=== PATIENT | male | born 1965 | race American Indian/Alaskan Native ===

== ENCOUNTER 2019-03-06 13:05 | Emergency (ER) | payer OTHER ==
--- NOTE | 2019-03-06 13:21 | Emergency Department Report ---
Blank Doc - Documentation Documentation: This is a 53-year-old male that presents with SOB, generalized weakness and bi lateral leg pain. This initial assessment/diagnostic orders/clinical plan/treatment(s) is/are subject to change based on patient's health status, clinical progression and re- assessment by fellow clinical providers in the ED. Further treatment and workup at subsequent clinical providers discretion. Patient/guardians urged not to elope from the ED as their condition may be serious if not clinically assessed and managed. Initial orders include: 1- Patient sent to MAIN ED for further evaluation and treatment 2- labs 3- EKG 4- cxr
[2019-03-06 14:08] LABS: Hematocrit 40.4 % (35.5-45.6); Mean Corpuscular HGB Conc 35 % (32-34); Mean Corpuscular Volume 88 fl (84-94); Platelet Count 261 K/mm3 (140-440); Red Blood Count 4.62 M/mm3 (3.65-5.03); Red Cell Distribution Width 12.8 % (13.2-15.2)
[2019-03-06 14:17] LABS: INR 0.87 (0.87-1.13)
[2019-03-06 14:18] LABS: Partial Thromboplastin Time 28.5 Sec. (24.2-36.6)
--- NOTE | 2019-03-06 14:19 | XRay Report ---
ROUTINE CHEST, TWO VIEWS: HISTORY: chest pain. The trachea, heart, mediastinal contour, lung blanco and bony thorax are unremarkable. IMPRESSION: Unremarkable chest x-ray.
[2019-03-06 14:32] LABS: Alanine Aminotransferase 14 units/L (7-56); Albumin 4.6 g/dL (3.9-5); BUN/Creatinine Ratio 6; Blood Urea Nitrogen 7 mg/dL (9-20); Calcium 9.9 mg/dL (8.4-10.2); Hemolysis Index 9
[2019-03-06] MEDS ORDERED: CATAPRES PO ONE (14:54)
[2019-03-06] MEDS ORDERED: CATAPRES ONE (14:58)
[2019-03-06 15:18] LABS: Eosinophils % (Manual) 0 % (0.0-4.3); Platelet Estimate Consistent w Auto; RBC Morphology Normal; Total Cells Counted 100
[2019-03-06] MEDS ORDERED: NACL 0.9% 1000 ML 1,000 ML IV ONE (15:55)
--- NOTE | 2019-03-06 16:01 | Emergency Department Report ---
HPI - General Chief Complaint: Weakness Time Seen by Provider: 03/06/19 13:20 - HPI HPI: Room 6 The patient is a 53-year-old male presented with a chief complaint of cramping and hypertension. The patient states 1 week ago went to see a dentist but they would not treat him secondary to hypertension. The patient states over the past 2-3 days he's had cramping in his hands and legs intermittently in addition to nausea and vomiting. Patient missed a slight shortness breath this morning but denies headache or chest pain. In the ED the patient currently denies complaints Location: [See above] Duration: One week Quality: Nausea Severity: [See above] Modifying factors: [see above] Context: [see above] Mode of transportation: [not driving] ED Past Medical Hx - Past Medical History Previous Medical History?: No - Surgical History Past Surgical History?: No Additional Surgical History: Right humerus fracture repair - Family History Family history: no significant - Social History Smoking Status: Current Every Day Smoker (1/3 pack per day) Substance Use Type: None (denies illicit drug use), Alcohol (occasional) ED Review of Systems ROS: Stated complaint: CHEST PAIN Other details as noted in HPI Constitutional: no symptoms reported Eyes: denies: eye pain ENT: denies: throat pain Respiratory: shortness of breath Cardiovascular: denies: chest pain Endocrine: no symptoms reported Gastrointestinal: nausea, vomiting Genitourinary: denies: dysuria Musculoskeletal: denies: back pain Neurological: denies: headache Physical Exam - Physical Exam Vital Signs: Vital Signs 03/06/19 03/06/19 03/06/19 13:19 14:32 14:40 Temperature 97.4 F L Pulse Rate 112 H Respiratory 24 24 Rate Blood Pressure 210/119 O2 Sat by Pulse 100 100 100 Oximetry 03/06/19 03/06/19 14:45 15:00 Temperature Pulse Rate 60 69 Respiratory 17 19 Rate Blood Pressure 198/124 175/94 O2 Sat by Pulse 99 97 Oximetry Physical Exam: GENERAL: The patient is well-developed well-nourished male lying on stretcher not appearing to be in acute distress. [] HEENT: Normocephalic. Atraumatic. Extraocular motions are intact. Patient has moist mucous membranes. NECK: Supple. Trachea midline CHEST/LUNGS: Clear to auscultation. There is no respiratory distress noted. HEART/CARDIOVASCULAR: Regular. There is no tachycardia. There is no gallop rub or murmur. ABDOMEN: Abdomen is soft, nontender. Patient has normal bowel sounds. There is no abdominal distention. SKIN: There is no rash. There is no edema. There is no diaphoresis. NEURO: The patient is awake, alert, and oriented. The patient is cooperative. The patient has no focal neurologic deficits. The patient has normal speech. Cranial nerves II through XII grossly intact, no drift MUSCULOSKELETAL: There is no evidence of acute injury. ED Course Vital Signs 03/06/19 03/06/19 03/06/19 13:19 14:32 14:40 Temperature 97.4 F L Pulse Rate 112 H Respiratory 24 24 Rate Blood Pressure 210/119 O2 Sat by Pulse 100 100 100 Oximetry 03/06/19 03/06/19 14:45 15:00 Temperature Pulse Rate 60 69 Respiratory 17 19 Rate Blood Pressure 198/124 175/94 O2 Sat by Pulse 99 97 Oximetry ED Medical Decision Making - Lab Data Result diagrams: 03/06/19 13:40 03/06/19 13:40 Laboratory Tests 03/06/19 03/06/19 03/06/19 13:40 13:40 13:40 WBC 4.2 L RBC 4.62 Hgb 14.0 Hct 40.4 MCV 88 MCH 30 MCHC 35 H RDW 12.8 L Plt Count 261 [place] % (Auto) [employer] Add Manual Diff Complete Total Counted 100 Seg Neuts % (Manual) 52.0 Band Neutrophils % 0 Lymphocytes % (Manual) 28.0 Reactive Lymphs % (Man) 0 Monocytes % (Manual) 19.0 H Eosinophils % (Manual) 0 Basophils % (Manual) 1.0 Metamyelocytes % 0 Myelocytes % 0 Promyelocytes % 0 Blast Cells % 0 Nucleated RBC % Not Reportable Seg Neutrophils # Man 2.2 Band Neutrophils # 0.0 Lymphocytes # (Manual) 1.2 Abs React Lymphs (Man) 0.0 Monocytes # (Manual) 0.8 Eosinophils # (Manual) 0.0 Basophils # (Manual) 0.0 Metamyelocytes # 0.0 Myelocytes # 0.0 Promyelocytes # 0.0 Blast Cells # 0.0 WBC Morphology Not Reportable Hypersegmented Neuts Not Reportable Hyposegmented Neuts Not Reportable Hypogranular Neuts Not Reportable Smudge Cells Not Reportable Toxic Granulation Not Reportable Toxic Vacuolation Not Reportable Dohle Bodies Not Reportable Pelger-Huet Anomaly Not Reportable Argenis Rods Not Reportable Platelet Estimate Consistent w auto Clumped Platelets Not Reportable Plt Clumps, EDTA Not Reportable Large Platelets Not Reportable Giant Platelets Not Reportable Platelet Satelliting Not Reportable Plt Morphology Comment Not Reportable RBC Morphology Normal Dimorphic RBCs Not Reportable Polychromasia Not Reportable Hypochromasia Not Reportable Poikilocytosis Not Reportable Anisocytosis Not Reportable Microcytosis Not Reportable Macrocytosis Not Reportable Spherocytes Not Reportable Pappenheimer Bodies Not Reportable Sickle Cells Not Reportable Target Cells Not Reportable Tear Drop Cells Not Reportable Ovalocytes Not Reportable Helmet Cells Not Reportable Cooper-Capac Bodies Not Reportable Sterling Rings Not Reportable Tanner Cells Not Reportable Bite Cells Not Reportable Crenated Cell Not Reportable Elliptocytes Not Reportable Acanthocytes (Spur) Not Reportable Rouleaux Not Reportable Hemoglobin C Crystals Not Reportable Schistocytes Not Reportable Malaria parasites Not Reportable Jose Bodies Not Reportable Hem Pathologist Commnt No PT 12.4 INR 0.87 APTT 28.5 Sodium 121 L Potassium 3.9 Chloride 78.5 L Carbon Dioxide 20 L Anion Gap 26 BUN 7 L Creatinine 1.2 Estimated GFR > 60 BUN/Creatinine Ratio 6 Glucose 186 H Calcium 9.9 Total Bilirubin 0.90 AST 38 ALT 14 Alkaline Phosphatase 42 Troponin T < 0.010 Total Protein 8.2 Albumin 4.6 Albumin/Globulin Ratio 1.3 - EKG Data -: EKG Interpreted by Me EKG shows normal: sinus rhythm Rate: normal - EKG Data When compared to previous EKG there are: previous EKG unavailable Interpretation: [facility] - Radiology Data Radiology results: report reviewed (chest x-ray), image reviewed (chest x-ray) interpreted by me: Chest x-ray-no focal infiltrates, no pneumothorax [facility] [address] [place] [address] XRay Report Signed Patient: JESUS CH MR#: [id number] : 1965 Acct:[id number] Age/Sex: 53 / M ADM Date: 03/06/19 Loc: ED Attending Dr: Ordering Physician: LOU HERNÁNDEZ NP Date of Service: 03/06/19 Procedure(s): XR chest routine 2V Accession Number(s): [id number] cc: LOU HERNÁNDEZ NP Fluoro Time In Minutes: ROUTINE CHEST, TWO VIEWS: HISTORY: chest pain. The trachea, heart, mediastinal contour, lung blanco and bony thorax are unremarkable. IMPRESSION: Unremarkable chest x-ray. Transcribed By: TTR Dictated By: DAVON ROBLEDO JR, MD Electronically Authenticated By: DAVON ROBLEDO JR, MD Signed Date/Time: 03/06/191413 DD/ 13 TD/TT: 03/06/191413 - Differential Diagnosis hypertensive urgency, electrolyte imbalance Critical care attestation.: If time is entered above; I have spent that time in minutes in the direct care of this critically ill patient, excluding procedure time. ED Disposition Clinical Impression: Hyponatremia, Hypertension Disposition: OP ADMIT IP TO THIS HOSP Is pt being admited?: Yes Does the pt Need Aspirin: Yes Condition: Fair Instructions: Hypertension (ED) Referrals: PRIMARY CARE, [Primary Care Provider] - 3-5 Days Time of Disposition: 16:06 (hospitalist paged (Dr Jacobs))
--- NOTE | 2019-03-06 16:29 | History and Physical Report ---
Medications and Allergies Allergies Allergy/AdvReac Type Severity Reaction Status Date / Time No Known Allergies Allergy Unverified 03/06/19 13:08 Active Meds: Active Medications Sodium Chloride (Nacl 0.9% 1000 Ml) 1,000 mls @ 999 mls/hr IV ONCE ONE Stop: 03/06/19 16:55 Exam - Constitutional Vitals: Temp Pulse Resp BP Pulse Ox 97.4 F L 73 19 177/96 97 03/06/19 13:19 03/06/19 15:59 03/06/19 15:00 03/06/19 15:59 03/06/19 15:00 Results - Labs CBC & Chem 7: 03/06/19 13:40 03/06/19 13:40 Labs: Abnormal lab results 03/06/19 03/06/19 Range/Units 13:40 13:40 WBC 4.2 L (4.5-11.0) K/mm3 MCHC 35 H (32-34) % RDW 12.8 L (13.2-15.2) % Monocytes % (Manual) 19.0 H (0.0-7.3) % Sodium 121 L (137-145) mmol/L Chloride 78.5 L (98-107) mmol/L Carbon Dioxide 20 L (22-30) mmol/L BUN 7 L (9-20) mg/dL Glucose 186 H (75-100) mg/dL
[2019-03-06 16:31] LABS: Bacteria,Urine 1+ /HPF (Negative); Bilirubin,Urine NEG (Negative); Blood,Urine SM (Negative); Color,Urine Straw (Yellow); Mucus,Urine FEW /HPF; Protein,Urine <15 mg/dL mg/dL (Negative); Urobilinogen,Urine < 2.0 mg/dL (<2.0); WBC,Urine < 1.0 /HPF (0.0-6.0)
[2019-03-06 20:49] LABS: BUN/Creatinine Ratio 6; Blood Urea Nitrogen 6 mg/dL (9-20); Calcium 9.5 mg/dL (8.4-10.2); Hemolysis Index 5
[2019-03-06 21:12] VITALS: BP 114/66
--- NOTE | 2019-03-06 21:17 | Event Note ---
Date: 03/06/19 53 YO Male with HTN, Nicotine Dependence presents to ED for evaluation of Uncontrolled HTN secondary to medication noncompliance. Pt seen and evaluated in ED. Pt medically optimized with normalization of blood pressure. Pt discharged home and instructed to f/u pcp 3-5 days, and to maintain blood pressure log. GENERAL: The patient is well-developed well-nourished male lying on stretcher not appearing to be in acute distress. [] HEENT: Normocephalic. Atraumatic. Extraocular motions are intact. Patient has moist mucous membranes. NECK: Supple. Trachea midline CHEST/LUNGS: Clear to auscultation. There is no respiratory distress noted. HEART/CARDIOVASCULAR: Regular. There is no tachycardia. There is no gallop rub or murmur. ABDOMEN: Abdomen is soft, nontender. Patient has normal bowel sounds. There is no abdominal distention. SKIN: There is no rash. There is no edema. There is no diaphoresis. NEURO: The patient is awake, alert, and oriented. The patient is cooperative. The patient has no focal neurologic deficits. The patient has normal speech. Cranial nerves II through XII grossly intact, no drift MUSCULOSKELETAL: There is no evidence of acute injury.
== END 2019-03-06 22:15 | disposition admitted as inpatient to this hospital (09) ==
LOC: ED 13:05
DX: E87.1 Hypo-osmolality and hyponatremia (principal); I10 Essential (primary) hypertension; F17.200 Nicotine dependence, unspecified, uncomplicated
CPT/HCPCS: 36415; 71046; 80048; 80053; 81001; 84484; 85007; 85025; 85610; 85730; 93005; 93010; 96361; 96374; 99284; J7030